=== PATIENT | male | born 1985 | race Caucasian/White ===

== ENCOUNTER 2016-06-04 11:01 | Emergency (ER) | payer SELFPAY ==
[2016-06-04 11:57] LABS: Hematocrit 41.9 % (35.5-45.6); Hemoglobin 13.8 gm/dl (11.8-15.2); Mean Corpuscular HGB Conc 33 % (32-34); Mean Corpuscular Volume 78 fl (84-94); Platelet Count 215 K/mm3 (140-440); Red Blood Count 5.36 M/mm3 (3.65-5.03); White Blood Count 10.3 K/mm3 (4.5-11.0)
[2016-06-04 12:09] LABS: Mean Corpuscular Hemoglobin 26 pg (28-32)
[2016-06-04 12:15] LABS: Anion Gap 17 mmol/L; Blood Urea Nitrogen 7 mg/dL (9-20); Calcium 9.7 mg/dL (8.4-10.2); Carbon Dioxide 26 mmol/L (22-30); Chloride 101.5 mmol/L (98-107); Glucose 77 mg/dL (75-100); Sodium 140 mmol/L (137-145)
[2016-06-04] MEDS ORDERED: NACL 0.9% 1000 ML 1,000 ML IV ONE (14:36)
[2016-06-04] MEDS ORDERED: VALIUM IV ONE (14:36)
--- NOTE | 2016-06-04 14:38 | Emergency Department Report ---
HPI - General Chief Complaint: Neck Pain/Injury Time Seen by Provider: 06/04/16 14:29 - HPI HPI: This is a 30-year-old Afro[place] male who presents to the emergency department, driven in by his girlfriend, with complaint of a 4 day history of bilateral neck pain and headache. The discomfort is mostly in the neck and he feels like it radiates up towards the head or is causing his headache. The pain worsens with any movement of the head including rotation, side bending or looking up or down. He denies any vision change, fever, slurred speech or any neurological deficits. He tried one Radha aspirin for his symptoms without any relief. He denies any trauma. This is been going on since Friday, 4 days ago , and has gotten presently worse. No recent travel or sick contacts at home. He denies any past medical history. He does not have a primary care doctor. ED Past Medical Hx - Past Medical History Previous Medical History?: No - Surgical History Past Surgical History?: No - Social History Smoking Status: Never Smoker Substance Use Type: None - Medications Home Medications: Home Medications Medication Instructions Recorded Confirmed Last Taken Type Diazepam Tab [Valium] 5 mg PO TID PRN #12 tablet 06/04/16 Unknown Rx Ibuprofen [Motrin 600 MG tab] 600 mg PO Q8H PRN #20 tablet 06/04/16 Unknown Rx ED Review of Systems ROS: Stated complaint: NECK PAIN Other details as noted in HPI Comment: All other systems reviewed and negative Constitutional: denies: chills, fever Eyes: denies: eye pain, eye discharge, vision change ENT: denies: ear pain, throat pain Respiratory: denies: cough, shortness of breath, wheezing Cardiovascular: denies: chest pain, palpitations Gastrointestinal: denies: abdominal pain, nausea, diarrhea Genitourinary: denies: urgency, dysuria Musculoskeletal: other (neck pain). denies: back pain Skin: denies: rash, lesions Neurological: headache. denies: weakness, numbness, paresthesias Physical Exam - Physical Exam Vital Signs: Vital Signs 06/04/16 11:36 Temperature 98.1 F Pulse Rate 79 Respiratory 18 Rate Blood Pressure 121/78 O2 Sat by Pulse 100 Oximetry Physical Exam: GENERAL: The patient is well-developed well-nourished. HEENT: Normocephalic. Atraumatic. Extraocular motions are intact. Patient has moist mucous membranes. Pupils equal reactive to light bilaterally. No nystagmus. NECK: Supple. Trachea is midline. No midline tenderness to palpation or deformity. Patient has restriction to range of motion with rotation, side bending and flexion and extension secondary to pain. There are taut musculature is to the bilateral cervical muscles and the bilateral paraspinal muscles going down to the shoulders consistent with trapezius muscle. CHEST/LUNGS: Clear to auscultation. There is no respiratory distress noted. HEART/CARDIOVASCULAR: Regular. There is no tachycardia. There is no gallop rub or murmur. ABDOMEN: Abdomen is soft, nontender. Patient has normal bowel sounds. There is no abdominal distention. SKIN: Skin is warm and dry. NEURO: The patient is awake, alert, and oriented. The patient is cooperative. The patient has no focal neurologic deficits. The patient has normal speech. Cranial nerves II through XII grossly intact. MUSCULOSKELETAL: There is no tenderness or deformity. There is no limitation range of motion. There is no evidence of acute injury. ED Course Vital Signs 06/04/16 11:36 Temperature 98.1 F Pulse Rate 79 Respiratory 18 Rate Blood Pressure 121/78 O2 Sat by Pulse 100 Oximetry ED Medical Decision Making - Lab Data Result diagrams: 06/04/16 11:46 06/04/16 11:46 - Radiology Data Radiology results: report reviewed CT of the head does not show any acute process including no hemorrhage, mass, shift, diffuse edema or skull fracture. - Medical Decision Making 30-year-old male presents with a 3 to four-day history of neck stiffness and pain with restriction to range of motion that has now caused a mild headache. He has no focal, motor or sensory deficits and no complaints of such prior to presentation. Cranial nerves are intact. Physical exam the patient appears to be having musculoskeletal pain and spasm with reproducible taut musculature. The patient was given a CT of the head without contrast that did not show any bleed, shift, mass, edema or any acute process. Patient was given IV placement , IV fluid resuscitation, Valium, Toradol and eventually 1 dose of pain medication. He was reevaluated multiple times for multiple hours and is feeling much better. Patient now has full range of motion of his head at his neck, decreased musculature and resolution of his headache. Patient's labs do not show any leukocytosis or any other significant abnormalities. His vital signs are stable, including being afebrile. Patient is now able to look at the ceiling and put chin to chest. He has low suspicion for meningitis at this is more likely to be musculoskeletal discomfort. He will be discharged home with some muscle relaxer and antinausea inflammatory. He knows to return to the emergency department with any worsening of symptoms, development of a fever, any neurological deficits or any acute distress. - Differential Diagnosis muscle spasm, strain, meningitis, contusion Critical Care Time: No Critical care attestation.: If time is entered above; I have spent that time in minutes in the direct care of this critically ill patient, excluding procedure time. ED Disposition Clinical Impression: Musculoskeletal neck pain, Muscle spasm Headache Qualifiers: Headache type: tension-type Headache chronicity pattern: unspecified pattern Intractability: not intractable Qualified Code(s): G44.209 - Tension-type headache, unspecified, not intractable Disposition: DISCHARGED TO HOME OR SELFCARE Is pt being admited?: No Condition: Stable Instructions: Acute Headache (ED), Musculoskeletal Pain (ED), Muscle Spasm (ED) Additional Instructions: Please follow-up with a primary care doctor in the next few days. Return to the emergency department with any worsening of your symptoms, development of fever or any acute distress. You've been prescribed a medication that is sedating. Therefore this medication cannot be mixed with alcohol, or taken prior to driving, working, or being responsible for children. Prescriptions: Diazepam Tab [Valium] 5 mg PO TID PRN #12 tablet PRN Reason: Muscle Spasm Ibuprofen [Motrin 600 MG tab] 600 mg PO Q8H PRN #20 tablet PRN Reason: Pain Referrals: PRIMARY CARE, [Primary Care Provider] - 3-5 Days [facility] [Outside] - 3-5 Days [facility] [Outside] - 3-5 Days Forms: Work/School Release Form(ED) Time of Disposition: 17:26
[2016-06-04 15:11] LABS: INR 0.99 (0.87-1.13)
[2016-06-04 15:12] LABS: Partial Thromboplastin Time 29.7 Sec. (24.2-36.6)
--- NOTE | 2016-06-04 15:29 | Cat Scan Report ---
CT HEAD WITHOUT CONTRAST: HISTORY: Head ache. Serial contiguous axial images were obtained through the cranium. Intravenous contrast material was not administered. The ventricles are normal in size and appearance. There is no mass effect or midline shift. No areas of abnormally increased or decreased attenuation are seen. No mass lesion is seen. The mastoid air cells and visualized portions of the sinuses are normal. IMPRESSION: Cranial CT scan within normal limits.
[2016-06-04] MEDS ORDERED: TORADOL IV ONE (15:31)
[2016-06-04] MEDS ORDERED: MORPHINE IV ONE (16:26)
[2016-06-04 17:41] VITALS: BP 113/68
== END 2016-06-04 17:41 | disposition home or self-care (01) ==
LOC: EDSEX → ED 11:01
DX: M54.2 Cervicalgia (principal); M62.830 Muscle spasm of back; G44.209 Tension-type headache, unspecified, not intractable
CPT/HCPCS: 36415; 70450; 80048; 85027; 85610; 85730; 96361; 96374; 96375; 99284; J1885; J2270; J3360; J7030